=== PATIENT | male | born 1935 | race Two or more races ===

== ENCOUNTER → 2018-12-08 | Outpatient (CLI) | payer OTHER ==
[~2018-12-08] MED LIST: BUPIVACAINE MPF 0.25% 10 ML VIAL. ONE; LIDOCAINE 1% PF 30 ML VIAL. ONE
[2018-12-08 11:22] VITALS: BP 142/79
== END ==
LOC: SURG 10:19
PROVIDERS: ATTEND Anesthesiology
DX: M47.816 Spondylosis without myelopathy or radiculopathy, lumbar region (principal); J44.9 Chronic obstructive pulmonary disease, unspecified; N40.0 Benign prostatic hyperplasia without lower urinary tract symptoms; G62.9 Polyneuropathy, unspecified; Z72.89 Other problems related to lifestyle; Z90.49 Acquired absence of other specified parts of digestive tract
CPT/HCPCS: 64493; 64494; 64495; J2001; J3490

== ENCOUNTER 2020-07-10 19:56 | Emergency (ER) | payer MEDICARE ==
[~2020-07-10] VITALS: Ht 175.3 cm; Wt 80.4 kg
[2020-07-10] MEDS ORDERED: NOREPINEPHRINE BITARTRATE 4 MG/4 ML VIAL. IV ONE (20:27)
[2020-07-10] MEDS ORDERED: IV NORMAL SALINE 250ML 250 ML ONE (20:28)
[2020-07-10] MEDS ORDERED: EPINEPHrine 5 MG in IV NORMAL SALINE 250ML 250 ML IV PRN (20:30)
[2020-07-10] MEDS ORDERED: EPINEPHrine SYRINGE 1 MG/10 ML SYRINGE ONE (21:00)
[2020-07-10] MEDS ORDERED: SODIUM BICARB ADULT 8.4% 50 MEQ/50 ML DISP.SYRIN. ONE ×2 (21:00→21:01)
--- NOTE | 2020-07-10 21:42 | RAD ---
XR CHEST 1V INDICATION: Reason: POST INTUBATION / Spl. Instructions: / History: . COMPARISON STUDY: None. FINDINGS: Life Support Devices: Endotracheal tube terminates 12 cm above the sabino. Lungs: Normal lung volume. Patchy bilateral opacities, greater on the right. Pleura: No pleural effusion or pneumothorax. Heart and Mediastinum: Normal cardiac size. Atherosclerotic thoracic aorta. IMPRESSION: 1. Endotracheal tube terminates 12 cm above the sabino. Recommend advancement for optimal positioning . 2. Patchy right greater than left lung opacities, which could represent multifocal infection or asymm etric edema. Electronically signed by: Paramjit Carrillo MD (07/10/2020 9:39 PM) [facility]
--- NOTE | 2020-07-10 21:43 | PHYS DOC ---
General Adult EDM: Chief Complaint: CPR/FULL ARREST HPI: HPI: 85-year-old male presents as a CODE BLUE. The patient called a cab to come to the emergency room and while he was in route in the back of the cab he vomited blood and then collapsed. He was unresponsive on arrival. No further history is available. Review of Systems: Review of Systems: Unable to perform due to unresponsive Current Medications: Current Meds: Current Medications Medications (Trade) Dose Ordered Sig/Dawn Start Time Stop Time Status Last Admin Dose Admin Epinephrine HCl 5 mg/Sodium Chloride 255 ml @ 30.6 mls/hr CONT PRN 07/10/20 20:30 Norepinephrine Bitartrate (Levophed) 4 mg STK-MED ONCE 07/10/20 20:27 07/10/20 20:27 DC Sodium Bicarbonate (Sodium Bicarb Adult 8.4% Syr) 50 meq STK-MED ONCE 07/10/20 21:01 07/10/20 21:01 DC Sodium Chloride 250 ml @ As Directed STK-MED ONCE 07/10/20 20:28 07/10/20 20:28 DC Allergies: Allergies: Allergies Coded Allergies Type Severity Reaction Last Updated Verified Unable to Assess 07/10/20 No Physical Exam: PE: Constitutional: Well developed, well nourished, critical acute distress, non- toxic appearance. [] HENT: Normocephalic, atraumatic, bilateral external ears normal, oropharynx and nose with dark blood. [] Eyes: Fixed. [] Neck: supple, [] Cardiovascular: Asystole [] Lungs & Thorax: Bilateral breath sounds with crackles and diminished [] Abdomen: soft, no masses, no pulsatile masses. [] Skin: Warm, dry, no erythema, no rash. [] Back: Deferred [] Extremities: No cyanosis, no edema. [] Neurologic: Unresponsive [] Psychologic: Unable to assess. Rectal: Moderate amount of dark black stool [] EKG: EKG: Sinus tachycardia, rate 108, normal axis, right bundle branch block, no ST elevation or depression. [] Radiology/Procedures: Radiology/Procedures: [] Heart Score: C/O Chest Pain: N/A Risk Factors: Risk Factors: DM, Current or recent (<one month) smoker, HTN, HLP, family history of CAD, obesity. Risk Scores: Score 0 - 3: 2.5% MACE over next 6 weeks - Discharge Home Score 4 - 6: 20.3% MACE over next 6 weeks - Admit for Clinical Observation Score 7 - 10: 72.7% MACE over next 6 weeks - Early Invasive Strategies Course & Med Decision Making: Course & Med Decision Making Pertinent Labs and Imaging studies reviewed. (See chart for details) We began CPR in the back of the vehicle while the gurney was retrieved. He was then transferred to the bed and we continued compressions. The patient was placed in the trauma bay. There was a significant amount of melena as well as bloody fluid in the mouth and pharynx. We began bagging the patient. There was minimal resistance. We suctioned the patient several times to clear view for the airway. I intubated the patient with a 7.5 tube. There were 2 attempts with the glide scope. Tube was 22 at the teeth. X-ray showed tube in place but high. I later advanced the tube to 26 to the teeth. We did several rounds of epinephrine, bicarb, and chest compressions. We were able to establish a rhythm for short periods of time several times. See official code chart for more details. We added a norepinephrine drip. We increased it several times to try to maintain pressure. Patient was given at least 2 units of packed red blood cells. We were finally able to establish a steady heart rate and stable blood pressure. I contacted [facility] [place] for transfer. Dr. Gary, the land management supervisor at has accepted the patient for transfer and admission. 68 minutes of critical care time was spent on this patient exclusive of billable procedures. When the patient arrived there was confusion about his real identity. The orders and blood were placed under a Shashi Pimentel. The patient's correct identity is Todd Reyes. [] Dragon Disclaimer: Dragon Disclaimer: This electronic medical record was generated, in whole or in part, using a voice recognition dictation system. Intubation Procedure Intub Indication: [] CODE BLUE Consent: [] Assumed due to critical state of the patient Medications Used: None Procedure: The patient was placed in the [INTUBATION POSITION]. The oropharynx was suctioned. I made 3 attempts with the glide scope to establish intubation. I visualized the tube going through the vocal cords. There was colorimetric change. Bilateral breath sounds. The tube was secured at 22 to the teeth. It was advanced to 26 at the teeth. The patient was connected to the vent. The patient tolerated the procedure well. Complications: 3 attempts Departure Departure: Impression: Primary Impression: GI bleed Additional Impression: Cardiopulmonary arrest Disposition: 02 SHORT TERM HOSPITAL Condition: CRITICAL Referrals: PCP,NO (PCP) MENDOZA SIMONS DO July 10, 2020 21:43
[2020-07-10] MEDS ORDERED: SODIUM BICARBONATE IVF 150 MEQ in IV DEXTROSE 5% 1,000 ML IV ONE (22:00)
[2020-07-10] MEDS ORDERED: PANTOPRAZOLE IV 40 MG VIAL. ONE (22:02)
[2020-07-10 22:28] LABS: BASO # 0.1 x10^3/uL (0.0-0.2); BASO % 1 % (0-3); EOS % 0 % (0-3); HEMATOCRIT 30.7 % (39.0-53.0); HEMOGLOBIN 9.5 g/dL (13.0-17.5); LYMPH # 4.2 x10^3/uL (1.0-4.8); LYMPH % 32 % (24-48); MEAN CORPUSCULAR HEMOGLOBIN 32 pg (25-35); MEAN CORPUSCULAR HGB CONC 31 g/dL (31-37); MEAN CORPUSCULAR VOLUME 102 fL (79-100); MONO # 1.7 x10^3/uL (0.0-1.1); MONO % 13 % (0-9); NEUT % 54 % (31-73); PLATELET COUNT 149 x10^3/uL (140-400); RED CELL DISTRIBUTION WIDTH 21.7 % (11.5-14.5)
[2020-07-10] MEDS ORDERED: PIPERACILLIN/TAZOBACTAM 4.5 GM in IV NORMAL SALINE 50ML 50 ML IV ONE (22:30)
[2020-07-10] MEDS ORDERED: OCTREOTIDE 100 MCG/ML VIAL SQ ONE (22:30)
[2020-07-10] MEDS ORDERED: PANTOPRAZOLE IV 40 MG VIAL. IVP ONE (22:30)
[2020-07-10 22:36] LABS: BGAS PH 6.82 (7.35-7.46)
[2020-07-10 22:43] LABS: BGAS PH 6.98 (7.35-7.46)
[2020-07-10 22:57] LABS: ALBUMIN 2.6 g/dL (3.4-5.0); ALBUMIN/GLOBULIN RATIO 0.7 (1.0-1.7); CALCIUM 8.5 mg/dL (8.5-10.1); CREATININE 1.8 mg/dL (0.7-1.3); GFR 36.2; MAGNESIUM 2.1 mg/dL (1.8-2.4); TOTAL BILIRUBIN 1.8 mg/dL (0.2-1.0); TOTAL PROTEIN 6.1 g/dL (6.4-8.2)
[2020-07-10 22:59] LABS: AMPHETAMINE/METHAMPHETAMINE NEG (NEG); BARBITURATES NEG (NEG); BENZODIAZEPINES NEG (NEG); CANNABINOIDS NEG (NEG); COCAINE NEG (NEG); METHADONE NEG (NEG); OPIATES NEG (NEG); PHENCYCLIDINE NEG (NEG)
[2020-07-10 22:59] LABS: POTASSIUM 6.4 mmol/L (3.5-5.1)
[2020-07-10] MEDS ORDERED: IV NORMAL SALINE 50ML 50 ML ONE (23:01)
[2020-07-10] MEDS ORDERED: PIPERACILLIN/TAZOBACTAM 4.5 GM VIAL IV ONE (23:01)
[2020-07-10 23:07] LABS: BACTERIA,URINE 0 /HPF (0-FEW); BILIRUBIN,URINE NEG (NEG); CLARITY,URINE CLEAR; COLOR,URINE YELLOW; GLUCOSE,URINE NEG (NEG); NITRITE,URINE NEG (NEG); RBC,URINE 0 /HPF (0-2); WBC,URINE OCC /HPF (0-4)
[2020-07-10 23:08] LABS: SPERM,URINE PRESENT /HPF
[2020-07-10 23:21] LABS: % BANDS 8 % (0-9); % LYMPHS 25 % (24-48); % MONOS 16 % (0-10); % SEGS 51 % (35-66)
[2020-07-10 23:22] LABS: ANISOCYTOSIS SLIGHT; PLT ESTIMATE ADEQUATE (ADEQUATE)
[2020-07-10 23:25] VITALS: BP 98/55
--- NOTE | 2020-07-10 23:33 | EKG ---
[address] [address] Test Date: 2020-07-10 Test Time: 20:13:50 Pat Name: FAUSTO MYERS Department: Room: Gender: M Landscaping Crew Leader: : [id number] Requested By: BUCK RUTLEDGE Order Number: [id number] Reading MD: Measurements Intervals [place] Rate: 108 P: 90 DC: 154 QRS: 27 QRSD: 158 T: -8 QT: 376 QTc: 508 Interpretive Statements SINUS TACHYCARDIA RIGHT BUNDLE BRANCH BLOCK RVH WITH REPOLARIZATION ABNORMALITY ABNORMAL ECG RI6.02 No previous ECG available for comparison
[2020-07-10] MEDS ORDERED: MIDAZOLAM HCL PF 5 MG/5 ML VIAL. IV ONE (23:45)
== END 2020-07-10 23:25 | disposition short-term general hospital (02) ==
LOC: EDBD → MERGE 19:56 → EDBD 19:56 → ER 19:56
DX: I46.9 Cardiac arrest, cause unspecified (principal); K92.2 Gastrointestinal hemorrhage, unspecified
CPT/HCPCS: 31500; 36415; 36430; 36600; 71045; 80053; 80307; 81001; 82553; 82803; 83735; 83880; 84484; 85007; 85025; 85610; 85730; 86850; 86900; 86901; 92950; 93005; 96365; 96372; 96375; 99291; C9113; J0171; J2250; J2354; J2543; 94002